=== PATIENT | female | born 1980 | race Caucasian/White ===

== ENCOUNTER 2020-11-02 18:31 | Emergency (ER) | payer BC ==
[2020-11-02] MEDS ORDERED: TOPAMAX25 MG (18:42)
[2020-11-02] MEDS ORDERED: BUSPIRONE5 MG (18:42)
[2020-11-02 18:48] LABS: BASO # 0.1 (0.02-0.10); EOS # 0.3 (0.04-0.40); EOS % 4.5 % (1.0-5.0); HEMATOCRIT 39.4 % (37.0-47.0); HEMOGLOBIN 12.6 g/dL (12.5-16.0); LYMPH# 3.2 (1.50-4.00); MEAN CELL VOLUME 93 fl (78-100); MEAN CORPUSCULAR HEMOGLOBIN 30 pg (27-31); MEAN CORPUSCULAR HGB CONC 32 g/dL (33-37); MEAN PLATELET VOLUME 9.1 fl (7.4-10.4); MONO # 0.5 (0.20-0.80); NEU # 3.3 (1.40-6.50); PLATELET COUNT 357 K/mm3 (130-400); RED BLOOD COUNT 4.26 M/mm3 (4.10-5.30); WHITE BLOOD COUNT 7.3 K/mm3 (4.8-10.8)
[2020-11-02 19:06] LABS: ALBUMIN 4.5 g/dL (3.5-5.0); POTASSIUM 3.5 mmol/L (3.5-5.1); SODIUM 139 mmol/L (136-145)
[2020-11-02 19:07] LABS: CALCIUM 9.1 mg/dL (8.3-10.5)
[2020-11-02 19:09] LABS: GLUCOSE 101 mg/dL (65-105); TOTAL PROTEIN 7.5 g/dL (6.4-8.3)
[2020-11-02 19:10] LABS: CARBON DIOXIDE 22 mmol/L (22-29); TOTAL BILIRUBIN 0.3 mg/dL (0.2-1.2)
[2020-11-02 19:14] LABS: AST-SGOT 12 U/L (5-34)
[2020-11-02 19:16] LABS: ALT/SGPT 13 U/L (0-55)
[2020-11-02 19:26] LABS: PARTIAL THROMBOPLASTIN TIME 25.6 SECONDS (21.0-32.0); PROTHROMBIN TIME 10.2 SECONDS (9.0-12.0)
[2020-11-02 19:37] LABS: TROPONIN-I < 0.03 ng/mL (<0.030)
[2020-11-02 20:10] LABS: URINE COLOR YELLOW
[2020-11-02 20:11] LABS: URINE APPEARANCE CLEAR
[2020-11-02 20:12] LABS: URINE BILIRUBIN NEGATIVE (NEGATIVE); URINE BLOOD NEGATIVE (NEGATIVE); URINE GLUCOSE NEGATIVE (NEGATIVE); URINE KETONE NEGATIVE (NEGATIVE); URINE LEUKOCYTE ESTERASE NEGATIVE (NEGATIVE); URINE NITRATE NEGATIVE (NEGATIVE); URINE PROTEIN(semi-quant) TRACE mg/dL (NEGATIVE); URINE UROBILINOGEN NORMAL (NORMAL); URINE WBC 0-1 /hpf (0-3)
[2020-11-02 20:38] VITALS: BP 124/78
== END 2020-11-02 20:40 | disposition home or self-care (01) ==
LOC: ED 18:31
PROVIDERS: Nurse Practitioner
DX: R00.2 Palpitations (principal); F41.9 Anxiety disorder, unspecified; Z88.0 Allergy status to penicillin; Z88.2 Allergy status to sulfonamides

== ENCOUNTER → 2021-08-16 | Outpatient (CLI) | payer BC ==
[~2021-08-16] MED LIST: BUSPIRONE5 MG; TOPAMAX25 MG
== END ==
LOC: RAD 15:48
DX: S09.90XA Unspecified injury of head, initial encounter (principal)
CPT/HCPCS: Q9967